=== PATIENT | female | born 1995 | race Two or more races ===

== ENCOUNTER 2024-05-14 08:36 | Emergency (ER) | payer BC ==
[2024-05-14 08:44] VITALS: BP 109/74; PULSE 82; RESP 20; TEMP 98.8; BMI 17.9
[2024-05-14 10:50] LABS: PH,URINE 6.5 (5.0-8.0); URINE APPEARANCE CLEAR; URINE BILIRUBIN NEGATIVE (NEGATIVE); URINE COLOR YELLOW; URINE GLUCOSE (UA) NEGATIVE (NEGATIVE); URINE KETONE NEGATIVE (NEGATIVE); URINE LEUK ESTERASE NEGATIVE (NEGATIVE); URINE NITRITE NEGATIVE (NEGATIVE); URINE PROTEIN NEGATIVE (NEGATIVE); URINE UROBILINOGEN 0.2 mg/dL (0.2-1.0)
[2024-05-14 10:51] LABS: BASO % 1.1 % (0-2.0); EOS % 2.6 % (0-4.5); HEMATOCRIT 41.3 % (32.4-45.2); HEMOGLOBIN 14.3 GM/dL (10.7-15.3); LYMPH % 20.9 % (8-40); MCH 28.9 pg (25.7-33.7); MCHC 34.5 g/dl (32.0-36.0); MEAN CELL VOLUME 83.6 fl (80-96); MEAN PLT VOLUME 7.2 fl (7.5-11.1); MONO % 7.3 % (3.8-10.2); NEUT % 68.1 % (42.8-82.8); PLATELET COUNT 362 10^3/uL (134-434); RBC 4.94 M/mm3 (3.60-5.2)
[2024-05-14 11:22] LABS: POTASSIUM 3.8 mmol/L (3.5-5.1)
[2024-05-14 11:24] LABS: CALCIUM 9.4 mg/dL (8.5-10.1)
[2024-05-14 11:25] LABS: ALBUMIN 4.1 g/dl (3.4-5.0); BLOOD UREA NITROGEN 10.2 mg/dL (7-18)
[2024-05-14 11:28] LABS: CREATININE 0.5 mg/dL (0.55-1.3)
[2024-05-14 11:30] LABS: BILIRUBIN,TOTAL 0.4 mg/dL (0.2-1); TOT PROT 7.2 g/dl (6.4-8.2)
[2024-05-14] MEDS: SODIUM CHLORIDE 1,000 ML IV STA (12:04)
== END 2024-05-14 13:47 | disposition home or self-care (01) ==
LOC: JER 08:36
PROC: 3E0337Z Introduction of Electrolytic and Water Balance Substance into Peripheral Vein, Percutaneous Approach (ICD-10-PCS; principal; 2024-05-14)
DX: R10.31 Right lower quadrant pain (principal); R10.2 Pelvic and perineal pain
CPT/HCPCS: 36415; 74177-TC; 76830-TC; 80053; 81003; 84703; 85025; 87086; 99285-25; Q9967